=== PATIENT | female | born 1950 | race Caucasian/White ===

== ENCOUNTER → 2016-12-08 | Outpatient (CLI) | payer MEDICARE, OTHER ==
[~2016-12-08] MED LIST: ARIPIPRAZOLE2 MG PO; ATARAX,VISTARIL25 MG PO; CEFTIN500 MG PO; CHLORZOXAZONE500 MG PO; CLONAZEPAM1 MG PO; COMPAZINE10 MG PO; DICYCLOMINE HCL20 MG PO; DILAUDID2 MG PO; EZETIMIBE10 MG PO; GABAPENTIN300 MG PO; GLIPIZIDE5 MG PO; HYDROCODON-ACE1 EAC7 PO; HYDROCODON-ACE1 EACH PO; LANTUS 3 M100 UNITS1 SC; LEVEMIR FL100 UNITS/ SC; METFORMIN HCL500 MG PO; PAXIL10 MG PO; PAXIL30 MG PO; PRAMIPEXOLE DIHY1 MG PO; PRAMIPEXOLE ER3 MG PO; RAMIPRIL1.25 MG PO; TRAMADOL HCL50 MG PO; VERAPAMIL HCL120 M2 PO; ZOFRAN ODT4 MG PO
== END | disposition home or self-care (01) ==
LOC: CDC 09:13
DX: R94.31 Abnormal electrocardiogram [ECG] [EKG] (principal); M22.41 Chondromalacia patellae, right knee; M17.11 Unilateral primary osteoarthritis, right knee; S83.241D Other tear of medial meniscus, current injury, right knee, subsequent encounter; M25.561 Pain in right knee
CPT/HCPCS: 93000

== ENCOUNTER 2016-12-30 06:37 | Day surgery (SDC) | payer OTHER ==
[~2016-12-30] VITALS: Ht 170.2 cm; Wt 103.0 kg
[2016-12-30 07:59] LABS: POINT-OF-CARE METER ID UU13113696
[2016-12-30 08:14] LABS: EOSINOPHIL (%) 1.6 % (0-5); EOSINOPHIL COUNT 0.1 K/uL (0-0.3); IMMATURE GRANULOCYTE (%) 0.3 % (0.0-0.7); INSTRUMENT ABS NEUTROPHIL CT 4.9 K/uL; LYMPHOCYTE COUNT 1.4 K/uL (1.0-2.8); MCH 28.7 PG (29.0-34.0); MCHC 31.8 G/DL (30.0-36.0); MCV 90.3 FL (83-99); MEAN PLAT.VOLUME 10.1 uM^3 (9.5-12.4); MONOCYTE (%) 6.7 % (3-12); MONOCYTE COUNT 0.5 K/uL (0-0.8); NEUTROPHIL (%) 71.3 % (45-76); NEUTROPHIL COUNT 4.9 K/uL (1.8-6.4); PLATELET COUNT 270 K/uL (156-360); RBC DIS.WIDTH-CV 12.4 % (11.8-14.6); RBC DIS.WIDTH-SD 40.8 % (39-53); RED BLOOD COUNT 4.43 M/uL (3.80-5.20); WHITE BLOOD COUNT 6.9 K/uL (4.1-10.2)
== END 2016-12-30 13:10 | disposition home or self-care (01) ==
LOC: CATH 06:37
PROVIDERS: Internal Medicine Cardiovascular Disease
DX: Z01.810 Encounter for preprocedural cardiovascular examination (principal); R94.39 Abnormal result of other cardiovascular function study; I10 Essential (primary) hypertension; E66.9 Obesity, unspecified; E11.9 Type 2 diabetes mellitus without complications; R06.00 Dyspnea, unspecified; I05.9 Rheumatic mitral valve disease, unspecified; Z79.4 Long term (current) use of insulin; Z88.8 Allergy status to other drugs, medicaments and biological substances
CPT/HCPCS: 82948; 85025; C1769; C1887; J1644; J2250; J3010

== ENCOUNTER → 2017-10-24 | Outpatient (CLI) | payer OTHER ==
[~2017-10-24] VITALS: Ht 170.2 cm; Wt 104.3 kg
[~2017-10-24] MED LIST changes: +GLUCOTROL5 MG PO; +MIRAPEX1 MG PO; -PRAMIPEXOLE ER3 MG PO; +ROBITUSSIN100 MG/5 M PO
== END | disposition home or self-care (01) ==
LOC: AMB 08:50
PROVIDERS: Internal Medicine
PROC: 0DJ08ZZ Inspection of Upper Intestinal Tract, Via Natural or Artificial Opening Endoscopic (ICD-10-PCS; principal; 2017-10-24)
DX: K29.70 Gastritis, unspecified, without bleeding (principal); R13.10 Dysphagia, unspecified; K21.9 Gastro-esophageal reflux disease without esophagitis; E11.65 Type 2 diabetes mellitus with hyperglycemia; E78.00 Pure hypercholesterolemia, unspecified; I10 Essential (primary) hypertension; E66.9 Obesity, unspecified; Z68.36 Body mass index [BMI] 36.0-36.9, adult; F33.1 Major depressive disorder, recurrent, moderate; G25.81 Restless legs syndrome; Z79.4 Long term (current) use of insulin
CPT/HCPCS: 82948; 93005; J3010

== ENCOUNTER 2018-04-05 10:29 | Emergency (ER) | payer OTHER ==
[~2018-04-05] VITALS: Ht 170.2 cm; Wt 103.5 kg
[2018-04-05 14:14] LABS: HEMATOCRIT 36.4 % (36.0-46.0); MCH 29.5 PG (29.0-34.0); MCV 89.4 FL (83-99); PLATELET COUNT 267 K/uL (156-360); RBC DIS.WIDTH-CV 12.4 % (11.8-14.6); RBC DIS.WIDTH-SD 40.6 % (39-53); RED BLOOD COUNT 4.07 M/uL (3.80-5.20); WHITE BLOOD COUNT 6.3 K/uL (4.1-10.2)
[2018-04-05 14:20] LABS: INTER. NORMALIZED RATIO 1.1
[2018-04-05 14:23] LABS: PTT 26.3 SEC (25-37)
[2018-04-05 14:30] LABS: ALBUMIN 3.8 g/dL (3.2-4.8)
[2018-04-05 14:31] LABS: CHLORIDE 104 mEq/L (99-109); POTASSIUM 4.1 mEq/L (3.7-5.4); SODIUM 142 mEq/L (136-147)
[2018-04-05 14:33] LABS: GLUCOSE 112 mg/dL (70-99); TOTAL PROTEIN 6.9 g/dL (6.4-8.3)
[2018-04-05 14:35] LABS: TOTAL BILIRUBIN 0.4 mg/dL (0.0-1.0)
[2018-04-05 14:36] LABS: ALKALINE PHOSPHATASE 77 IU/L (3-129)
[2018-04-05 14:37] LABS: CREATININE 0.8 mg/dL (0.6-1.3); GFR ESTIMATE (CALCULATED) > 59 mL/min/
[2018-04-05 14:38] LABS: AST (GOT) 31 IU/L (2-34); UREA NITROGEN (BUN) 19 mg/dL (9-23)
[2018-04-05 14:40] LABS: ALT (GPT) 27 IU/L (3-49)
[2018-04-05] MEDS ORDERED: LOVENOX100 MG/1 M SC (15:51)
[2018-04-05] MEDS ORDERED: COUMADIN5 MG PO (15:51)
[2018-04-05 16:19] VITALS: BP 138/71
== END 2018-04-05 16:40 | disposition home or self-care (01) ==
LOC: EME 10:29
PROVIDERS: Emergency Medicine
DX: I82.412 Acute embolism and thrombosis of left femoral vein (principal); I82.4Z2 Acute embolism and thrombosis of unspecified deep veins of left distal lower extremity; E11.9 Type 2 diabetes mellitus without complications; Z79.4 Long term (current) use of insulin; I10 Essential (primary) hypertension; K21.9 Gastro-esophageal reflux disease without esophagitis; Z88.8 Allergy status to other drugs, medicaments and biological substances
CPT/HCPCS: 80053; 85027; 85610; 85730; 93971; 99281; 99285; J1650